=== PATIENT | male | born 2000 | race Hispanic/Latino ===

== ENCOUNTER 2023-08-28 16:32 | Emergency (ER) | payer BC ==
[~2023-08-28] VITALS: Ht 160 cm; Wt 81.6 kg
[2023-08-28 17:38] VITALS: BP 128/64; PULSE 67; RESP 15; TEMP 98.5; O2SAT 100
== END 2023-08-28 17:43 | disposition home or self-care (01) ==
LOC: ER 16:36
DX: R07.89 Other chest pain (principal); M94.0 Chondrocostal junction syndrome [Tietze]; F41.9 Anxiety disorder, unspecified
CPT/HCPCS: 93005; 99283